=== PATIENT | male | born 1975 | race Caucasian/White ===

== ENCOUNTER 2022-03-11 14:03 | Outpatient (REF) | payer MEDICAID, SELFPAY ==
--- NOTE | ~2022-03-11 | XR_ITS ---
EXAMINATION: XR ANKLE, RIGHT XR FOOT, RIGHT CLINICAL INFORMATION: Right ankle and foot pain. COMPARISON: None TECHNIQUE: 3 views right ankle, 3 views right foot. FINDINGS: No significant soft tissue swelling is seen. The ankle mortise appears stable. There is a small bony density seen at the tip of the medial malleolus which may be an accessory ossicle or the residua of old trauma. No acute fracture is seen. An accessory ossicle is noted beneath the calcaneus. Some spurring is present at the insertion of the Achilles tendon. XR/XR ankle RT min 3V IMPRESSION: No evidence of an acute injury. Other incidental findings as described above.
--- NOTE | ~2022-03-11 | XR_ITS ---
EXAMINATION: XR ANKLE, RIGHT XR FOOT, RIGHT CLINICAL INFORMATION: Right ankle and foot pain. COMPARISON: None TECHNIQUE: 3 views right ankle, 3 views right foot. FINDINGS: No significant soft tissue swelling is seen. The ankle mortise appears stable. There is a small bony density seen at the tip of the medial malleolus which may be an accessory ossicle or the residua of old trauma. No acute fracture is seen. An accessory ossicle is noted beneath the calcaneus. Some spurring is present at the insertion of the Achilles tendon. XR/XR foot RT min 3V IMPRESSION: No evidence of an acute injury. Other incidental findings as described above.
== END 2022-03-11 14:04 | disposition home or self-care (01) ==
LOC: HO.XRAY 14:03
PROVIDERS: Visit Provider Emergency Medicine
DX: M25.571 Pain in right ankle and joints of right foot (principal); R60.9 Edema, unspecified
CPT/HCPCS: 73610; 73630

== ENCOUNTER 2023-03-10 11:07 | Outpatient (REF) | payer MEDICAID, SELFPAY ==
[2023-03-10 13:19] LABS: MANUAL DIFF FLAG NO
[2023-03-10 13:28] LABS: Prothrombin Time 11.7 SEC (11.1-13.3)
[2023-03-10 13:31] LABS: Basophils Absolute Auto 0.1 X10*3/uL (0.0-0.2); Basophils Percent Auto 1.2 % (0-2); Eosinophils Absolute Auto 0.1 X10*3/uL (0.0-0.4); Eosinophils Percent Auto 0.5 % (0-4); Hematocrit 43.3 % (42.0-52.0); Hemoglobin 14.5 g/dl (14.0-18.0); Imm Gran Abs Auto 0.04 X10*3/uL (0.00-0.03); Imm Gran Pct Auto 0.4 % (0.0-0.4); Lymphocytes Percent Auto 19.8 % (20-40); Mean Corpuscular HGB Conc 33.5 g/dl (31.0-36.0); Mean Corpuscular Volume 101.6 fL (80.0-98.0); Mean Platelet Volume 10.1 fL (9.4-12.4); Monocytes Absolute Auto 1.1 X10*3/uL (0.1-1.2); Monocytes Percent Auto 10.5 % (2-11); Neutrophils Absolute Auto 6.7 x10*3/uL (2.0-8.3); Neutrophils Percent Auto 67.6 % (45-73); Platelet Count 334 X10*3/uL (160-400); Red Blood Count 4.26 X10*6/uL (4.60-5.80); Red Cell Distribution Width 11.2 % (11.0-16.0)
[2023-03-10 13:55] LABS: Alanine Aminotransferase 52 U/L (0-40); Alkaline Phosphatase 118 U/L (39-117); Anion Gap 12 (12-20); Aspartate Amino Transferase 74 U/L (5-37); Bilirubin Total 0.3 mg/dL (0.0-1.0); Blood Urea Nitrogen 14 mg/dL (9-16); Calcium 9.5 mg/dL (8.4-10.2); Carbon Dioxide 30 mmol/L (22-29); Chloride 101 mmol/L (96-108); Estimated Glomerular Filt Rate > 60; Glucose Random 80 mg/dL (60-115); Potassium 4.5 mmol/L (3.3-5.1); Sodium 138 mmol/L (135-145); Total Protein 8.3 g/dL (6.5-8.0)
[2023-03-12 11:13] LABS: Absolute CD3 Count 1578 cells/uL (840-3060); Absolute CD4 Count 1038 cells/uL (490-1740); Absolute CD8 Count 544 cells/uL (180-1170); Absolute Lymphocytes 1905 cells/uL (850-3900); CD4 CD8 Ratio 1.91 (0.86-5.00); Percent CD3 Cells 83 % (57-85); Percent CD4 Cells 54 % (30-61); Percent CD8 Cells 29 % (12-42)
[2023-03-13 13:09] LABS: Thyroid Stimulating Hormone 2.31 uIU/mL (0.32-4.0)
[2023-03-13 15:24] LABS: HIV RNA PCR Qn Copies NOT DETECTED copies/mL (NOT DETECTED); HIV RNA PCR Qn Log Copies NOT DETECTED (NOT DETECTED)
[2023-03-16 08:39] LABS: Hepatitis C Genotype 1a
[2023-03-16 15:43] LABS: FIB-ALT 45 U/L (9-46); FIB-Alpha-2-Macroglobulin 262 mg/dL (106-279); FIB-Apolipoprotein A1 149 mg/dL (94-176); FIB-GGT 255 U/L (3-95); FIB-Haptoglobin 51 mg/dL (43-212); FIB-Total Bilirubin 0.3 mg/dL (0.2-1.2); Liver Fibrosis Score 0.56; Liver Fibrosis Stage F2; Nec Inflam Act Grade A1; Nec Inflam Act Score 0.34
== END 2023-03-10 11:08 | disposition home or self-care (01) ==
LOC: HO.HHCL 11:07
PROVIDERS: Visit Provider Student in an Organized Health Care Education/Training Program
DX: B20 Human immunodeficiency virus [HIV] disease (principal)
CPT/HCPCS: 36415; 80053; 81596; 84443; 85025; 85610; 86359; 86360; 87536; 87902

== ENCOUNTER 2023-05-09 08:42 | Outpatient (REF) | payer MEDICAID, SELFPAY ==
[2023-05-09 12:06] LABS: Estimated Average Glucose 103 mg/dL; Hemoglobin A1C 124.9387 umol/L; Hemoglobin A1c % 5.2 % (<6.0)
[2023-05-09 12:40] LABS: Folate 14.5 ng/mL (> or = 4.0); Vitamin B12 698 pg/mL (200-900)
[2023-05-09 12:44] LABS: Cholesterol 144 mg/dL (<200); HDL Cholesterol 52 mg/dL (>40); LDL Cholesterol Calculated 75 mg/dL (<100); Triglycerides 89 mg/dL (<150)
[2023-05-09 13:01] LABS: Vitamin D 25-OH Total 20.4 ng/mL (>30)
[2023-05-10 03:45] LABS: Syphilis Screen Nonreactive (Nonreactive)
[2023-05-10 03:59] LABS: Hepatitis A Antibody IgG REACTIVE (Nonreactive); ~Hepatitis A Antibody IgG 6.04 S/CO (0.00-0.99)
[2023-05-10 04:05] LABS: HBS Num1 0.59 mIU/mL (0-7.99); HBc Num1 6.88 S/CO (0.00-0.79); Hepatitis B Surface Antigen Negative (Negative); ~Hepatitis B Surface Antibody NONREACTIVE (Nonreactive)
[2023-05-10 05:12] LABS: HBc Num2 6.76 S/CO; HBc Num3 6.54 S/CO; Hepatitis B Core Antibody Reactive (Nonreactive)
[2023-05-11 12:54] LABS: Alpha Fetoprotein 2.7 ng/mL (<6.1)
[2023-05-11 18:04] LABS: HCV Log PCR 6.77 Log IU/mL (NOT DETECTED); HepC Viral Load 5920000 IU/mL (NOT DETECTED)
[2023-05-12 01:28] LABS: Hepatitis B Core Antibody IgM NON-REACTIVE (NON-REACTIVE)
[2023-05-12 07:52] LABS: TS Negative Control Passed; TS Panel A 2; TS Panel B 4; TS Positive Control Passed; TSpotTB Negative (Negative)
[2023-05-12 21:23] LABS: Mumps Virus IgG Antibody <9.00 AU/mL
== END 2023-05-09 08:43 | disposition home or self-care (01) ==
LOC: HO.HHCL 08:42
PROVIDERS: Visit Provider Student in an Organized Health Care Education/Training Program
DX: Z00.00 Encounter for general adult medical examination without abnormal findings (principal); B20 Human immunodeficiency virus [HIV] disease; B18.2 Chronic viral hepatitis C
CPT/HCPCS: 36415; 80061; 82105; 82306; 82607; 82746; 83036; 86481; 86704; 86705; 86706; 86708; 86735; 86762; 86765; 86780; 87340; 87522

== ENCOUNTER 2024-05-29 15:30 | Outpatient (REF) | payer MEDICAID, SELFPAY ==
[2024-05-29 16:57] LABS: Rheumatoid Factor 23.6 IU/mL (<15.0)
[2024-05-29 17:05] LABS: Alanine Aminotransferase 160 U/L (0-40); Albumin Level 3.9 g/dL (3.5-5.0); Alkaline Phosphatase 112 U/L (39-117); Anion Gap 8 (12-20); Aspartate Amino Transferase 108 U/L (5-37); Bilirubin Total 0.4 mg/dL (0.0-1.0); Blood Urea Nitrogen 15 mg/dL (9-16); C Reactive Protein 0.34 mg/dL (< or = 0.50); Calcium 9.1 mg/dL (8.4-10.2); Carbon Dioxide 27 mmol/L (22-29); Chloride 106 mmol/L (96-108); Estimated Glomerular Filt Rate > 60; Glucose Random 82 mg/dL (60-115); Potassium 3.9 mmol/L (3.3-5.1); Sodium 137 mmol/L (135-145); Total Protein 8.4 g/dL (6.5-8.0)
--- OUTSIDE RECORDS SUMMARY | 2024-05-29 17:26 | XMS_ITS | Clinical Summary ---
Author Organization [employer] [facility] ity Address [address] [place] [address] Care Team Providers Care Racing Secretary Name Role Phone Unavailable Primary Care Provider Unavailabl e Social History Tobacco Use Types Packs/Day Years Used Date Smoking Tobacco: Never Assessed Sex and Gender Information Value Date Recorded Sex Assigned at Not on file Gender Identity Not on file Sexual Orientation Not on file Plan of Treatment Health Maintenance Due Date Last Done Comments DTaP,Tdap,and Td Vaccines (1 - Tdap) 08/05/1995 Hepatitis B Vaccines (1 of 3 - 19+ 3-dose series) 08/05/1995 Cholesterol Screening (Lipid Panel) 12/25/2023 Colorectal Cancer Screening: Colonoscopy 12/25/2023 Depression Screening 12/25/2023 HIV Screening 12/25/2023 Hepatitis C Screening 12/25/2023 Social Influencers of Health Screening 12/25/2023 COVID-19 Vaccine (2023-2 5 season) 2023 Influenza Vaccine (#1) 2023 HIB Vaccines Aged Out No longer eligi ble based on patient's age to complete this topic HPV Vaccines Aged Out No longer eligi ble based on patient's age to complete this topic Hepatitis A Vaccines Aged Out No long er eligible based on patient's age to complete this topic IPV Vaccines Aged Out No longer eligi ble based on patient's age to complete this topic MMR Vaccines Aged Out No longer eligi ble based on patient's age to complete this topic Meningococcal ACWY Vaccine Aged Out N o longer eligible based on patient's age to complete this topic Pneumococcal Vaccine: Pediat rics (0 to 5 Years) and At-Risk Patients (6 to 64 Years) Aged Out No longer eligible b ased on patient's age to complete this topic RSV Immunization Patients Un keely 20 months Aged Out No longer eligible b ased on patient's age to complete this topic Varicella Vaccines Aged Out No longer eligible based on patient's age to complete this topic
[2024-05-29 18:40] LABS: Erythrocyte Sedimentation Rate 16 MM/HR (0-15)
[2024-05-30 05:29] LABS: ~HepC Num1 16.64 S/CO (0.00-0.79); ~Hepatitis C Antibody Reactive (Nonreactive)
[2024-05-31 13:49] LABS: HIV RNA PCR Qn Copies 25 copies/mL (NOT DETECTED)
[2024-06-01 13:39] LABS: Absolute CD3 Count 3255 cells/uL (840-3060); Absolute CD4 Count 2145 cells/uL (490-1740); Absolute CD8 Count 1091 cells/uL (180-1170); Absolute Lymphocytes 4803 cells/uL (850-3900); CD4 CD8 Ratio 1.97 (0.86-5.00); Percent CD3 Cells 68 % (57-85); Percent CD4 Cells 45 % (30-61); Percent CD8 Cells 23 % (12-42)
[2024-06-01 15:24] LABS: HCV Log PCR 5.25 Log IU/mL (NOT DETECTED); HepC Viral Load 179000 IU/mL (NOT DETECTED)
[2024-06-03 17:08] LABS: Cyclic Citrullinated Peptide <16 UNITS
[2024-06-05 07:15] LABS: Anti Nuclear Antibody Screen NEGATIVE (NEGATIVE)
== END 2024-05-29 15:31 | disposition home or self-care (01) ==
LOC: HO.HHCL 15:30
PROVIDERS: Student in an Organized Health Care Education/Training Program; Visit Provider Nurse Practitioner Family
DX: Z00.00 Encounter for general adult medical examination without abnormal findings (principal); Z21 Asymptomatic human immunodeficiency virus [HIV] infection status; M25.541 Pain in joints of right hand; M25.542 Pain in joints of left hand; B18.2 Chronic viral hepatitis C
CPT/HCPCS: 36415; 80053; 85652; 86038; 86140; 86200; 86359; 86360; 86431; 86803; 87522; 87536

== ENCOUNTER 2024-06-04 08:44 | Outpatient (REF) | payer MEDICAID, SELFPAY ==
[2024-06-04 11:53] LABS: Cholesterol 125 mg/dL (<200); HDL Cholesterol 41 mg/dL (>40); LDL Cholesterol Calculated 69 mg/dL (<100); Triglycerides 75 mg/dL (<150)
[2024-06-04 12:59] LABS: CT PCR NOT DETECTED (Not Detect.); NG PCR NOT DETECTED (Not Detect.)
== END 2024-06-04 08:45 | disposition home or self-care (01) ==
LOC: HO.HHCL 08:44
PROVIDERS: Visit Provider Nurse Practitioner Family
DX: Z00.00 Encounter for general adult medical examination without abnormal findings (principal)
CPT/HCPCS: 80061; 87491; 87591

== ENCOUNTER 2024-06-04 11:42 | Outpatient (REF) | payer MEDICAID, SELFPAY ==
--- OUTSIDE RECORDS SUMMARY | 2024-06-04 12:39 | XMS_ITS | Clinical Summary ---
Author Organization [employer] [facility] ity Address [address] [place] [address] Care Team Providers Care Flight Test Data Acquisition Technician Name Role Phone Unavailable Primary Care Provider [...]
[2024-06-04 13:13] LABS: MANUAL DIFF FLAG NO
[2024-06-04 13:31] LABS: Basophils Absolute Auto 0.1 X10*3/uL (0.0-0.2); Basophils Percent Auto 0.9 % (0-2); Eosinophils Absolute Auto 0.2 X10*3/uL (0.0-0.4); Eosinophils Percent Auto 2.5 % (0-4); Hematocrit 40.7 % (42.0-52.0); Hemoglobin 14.1 g/dl (14.0-18.0); Imm Gran Abs Auto 0.01 X10*3/uL (0.00-0.03); Imm Gran Pct Auto 0.1 % (0.0-0.4); Lymphocytes Absolute Auto 3.8 X10*3/uL (1.2-4.9); Mean Corpuscular HGB Conc 34.6 g/dl (31.0-36.0); Mean Corpuscular Volume 95.3 fL (80.0-98.0); Mean Platelet Volume 10.9 fL (9.4-12.4); Monocytes Absolute Auto 0.8 X10*3/uL (0.1-1.2); Monocytes Percent Auto 10.3 % (2-11); Neutrophils Percent Auto 38.2 % (45-73); Platelet Count 231 X10*3/uL (160-400); Red Blood Count 4.27 X10*6/uL (4.60-5.80); Red Cell Distribution Width 11.8 % (11.0-16.0); White Blood Count 7.9 X10*3/uL (4.8-10.8)
[2024-06-04 13:37] LABS: Prothrombin Time 11.4 SEC (10.9-12.4)
[2024-06-04 13:56] LABS: Alanine Aminotransferase 190 U/L (0-40); Albumin Level 3.9 g/dL (3.5-5.0); Alkaline Phosphatase 94 U/L (39-117); Anion Gap 14 (12-20); Aspartate Amino Transferase 126 U/L (5-37); Bilirubin Total 0.4 mg/dL (0.0-1.0); Blood Urea Nitrogen 13 mg/dL (9-16); Calcium 9.7 mg/dL (8.4-10.2); Carbon Dioxide 29 mmol/L (22-29); Chloride 104 mmol/L (96-108); Estimated Glomerular Filt Rate > 60; Glucose Random 78 mg/dL (60-115); Potassium 4.1 mmol/L (3.3-5.1); Sodium 143 mmol/L (135-145); Total Protein 8.3 g/dL (6.5-8.0)
[2024-06-10 12:53] LABS: Hepatitis C Genotype 1a
[2024-06-12 16:53] LABS: FIB-ALT 144 U/L (9-46); FIB-Alpha-2-Macroglobulin 359 mg/dL (106-279); FIB-Apolipoprotein A1 142 mg/dL (94-176); FIB-GGT 86 U/L (3-95); FIB-Haptoglobin 57 mg/dL (43-212); FIB-Total Bilirubin 0.4 mg/dL (0.2-1.2); Liver Fibrosis Score 0.66; Liver Fibrosis Stage F3; Nec Inflam Act Grade A3; Nec Inflam Act Score 0.81; Reference ID 5331229
== END 2024-06-04 11:43 | disposition home or self-care (01) ==
LOC: HO.HHCL 11:42
PROVIDERS: Visit Provider Student in an Organized Health Care Education/Training Program
DX: B18.2 Chronic viral hepatitis C (principal)
CPT/HCPCS: 36415; 80053; 81596; 85025; 85610; 87902

== ENCOUNTER 2024-07-19 14:49 | Outpatient (REF) | payer MEDICAID, SELFPAY ==
[2024-07-22 03:45] LABS: Syphilis Screen Nonreactive (Nonreactive)
[2024-07-22 14:37] LABS: TS Negative Control Passed; TS Panel A 0; TS Panel B 0; TS Positive Control Passed; TSpotTB Negative (Negative)
== END 2024-07-19 14:50 | disposition home or self-care (01) ==
LOC: HO.HHCL 14:49
PROVIDERS: Emergency Medicine; Visit Provider Internal Medicine
DX: Z00.00 Encounter for general adult medical examination without abnormal findings (principal); Z21 Asymptomatic human immunodeficiency virus [HIV] infection status
CPT/HCPCS: 36415; 86481; 86780

== ENCOUNTER 2024-07-25 09:27 | Outpatient (REF) | payer MEDICAID, SELFPAY ==
--- NOTE | ~2024-07-25 | US_ITS ---
EXAMINATION: US ABDOMEN COMPLETE WITH LIVER ELASTOGRAPHY HISTORY: hep c TECHNIQUE: Real-time grayscale ultrasound imaging of the abdomen was performed and images were reviewed. COMPARISON: There are no prior studies for comparison. FINDINGS: Liver: The right lobe of the liver measures 15.5 cm in size. The left lobe of the liver measures 11.7 cm in size. The liver demonstrates normal homogeneous echotexture. No focal mass or intrahepatic biliary ductal dilatation is identified. There is normal hepatopedal flow in the portal vein. Ultrasound elastography of the liver was performed with 10 separate measurements of the liver parenchyma with the patient in the supine position. Measurements were obtained approximately 2 cm below Doe's capsule and perpendicular to the capsule. Images are of satisfactory quality. The median shear wave velocity is 2.03 m/s. The interquartile range/median (IQR/median) is 0.09. Gallbladder and biliary tree: The gallbladder is unremarkable, without evidence of calculi, wall thickening, or pericholecystic fluid. There is no sonographic Espinoza sign. The common bile duct is normal in caliber measuring 6 mm. Kidneys: The right kidney measures 12.0 cm in length. The left kidney measures 12.6 cm in length. The kidneys are unremarkable, without evidence of masses, hydronephrosis, or calculi. Pancreas: The pancreatic head, neck, and body are unremarkable. The pancreatic tail is obscured by bowel gas. Spleen: The spleen is normal in size and contour, measuring 10.4 cm in length. Abdominal aorta and inferior vena cava: The visualized portions of the abdominal aorta and inferior vena cava are normal in caliber. There is no free fluid in the abdomen. US/US abdomen comp w elastography IMPRESSION: Unremarkable ultrasound appearance of the liver. The median shear wave velocity in the liver is 2.03 m/s, corresponding to a median liver stiffness of 12.55 kPa. The IQR/median value is 0.09. This is indicative of a quality data set. Findings are indicative of a high elastography value suggestive of compensated advanced chronic liver disease. REFERENCE: Society of Radiologists in Ultrasound Liver Stiffness Thresholds (2019): LIVER STIFFNESS THRESHOLDS: *Shear wave velocity less than 1.3 m/s (Liver Stiffness equal or less than 5 kPa): High probability of being normal. *Shear wave velocity less than 1.7 m/s (Liver Stiffness less than 9 kPa): In the absence of other known clinical signs, rules out compensated advanced chronic liver disease. *Shear wave velocity between 1.7-2.1 m/s (Liver Stiffness 9-13 kPa): Suggestive of compensated advanced chronic liver disease but need further test for confirmation. *Shear wave velocity between 2.1-2.4 m/s (Liver Stiffness 13-17 kPa): Rules in compensated advanced chronic liver disease. *Shear wave velocity greater than 2.4 m/s (Liver Stiffness over 17 kPa): Suggestive of clinically significant portal hypertension. QUALITY OF DATA SET: *IQR/Median value equal or less than 0.15 implies a quality data set. *IQR/Median value over 0.15 implies a poor quality data set. SIGNIFICANT CHANGE FROM PRIOR EXAM: Significant change if liver stiffness measurement is 10% or greater from prior exam. OTHER CONSIDERATIONS: The stage of liver fibrosis may be overestimated in the setting of acute hepatitis, liver inflammation, elevated liver function tests, hepatic vascular congestion, obstructive cholestasis, non-fasting state, and infiltrative diseases such as amyloidosis and lymphoma. In some patients with NAFLD, the liver stiffness thresholds for compensated advanced chronic liver disease may be lower. In causes other than viral hepatitis and NAFLD, liver stiffness thresholds are not well established. Electronically signed by: Naveen Godoy MD 07/25/2024 10:43 AM EDT
--- OUTSIDE RECORDS SUMMARY | 2024-07-25 11:22 | XMS_ITS | Clinical Summary ---
Author Organization [employer] [facility] ity Address [address] [place] [address] Care Team Providers Care Liquefier Name Role Phone Unavailable Primary Care Provider Unavailabl e Social History Tobacco Use Types Packs/Day Years Used Date Smoking Tobacco: Never Assessed Sex and Gender Information Value Date Recorded Sex Assigned at Not on file Legal Sex Male 4:50 AM EST Gender Identity Not on file Sexual Orientation [...] patient's age to complete this topic Meningococcal B Vacine Aged Out No lo nger eligible based on patient's age to complete [...]
== END 2024-07-25 09:28 | disposition home or self-care (01) ==
LOC: HO.US 09:27
PROVIDERS: PCP Student in an Organized Health Care Education/Training Program; Visit Provider Internal Medicine
DX: B18.2 Chronic viral hepatitis C (principal)
CPT/HCPCS: 76700; 76981

== ENCOUNTER → 2024-07-25 09:32 | Outpatient (BNV) | payer MEDICAID, SELFPAY | PROVIDERS: PCP Student in an Organized Health Care Education/Training Program; Visit Provider Radiology Diagnostic Radiology | DX: B18.2 Chronic viral hepatitis C (principal) | CPT/HCPCS: 76700; 76981 ==

== ENCOUNTER 2024-08-12 16:36 | Outpatient (REF) | payer MEDICAID, SELFPAY ==
--- OUTSIDE RECORDS SUMMARY | 2024-08-12 18:30 | XMS_ITS | Clinical Summary ---
Author Organization [employer] [facility] ity Address [address] [place] [address] Care Team Providers Care Laundry Technician Name Role Phone Unavailable Primary Care [...] Vaccine (2023-2 5 season) 2023 Influenza Vaccine (Season Ended) 2024 HIB Vaccines Aged Out No longer eligi [...] age to complete this topic Meningococcal B Vaccine Aged Out No l onger eligible based on patient's age to complete [...]
== END 2024-08-12 16:37 | disposition home or self-care (01) ==
LOC: HO.LNP 16:36
PROVIDERS: Visit Provider Student in an Organized Health Care Education/Training Program
DX: Z21 Asymptomatic human immunodeficiency virus [HIV] infection status (principal)
CPT/HCPCS: 88112

== ENCOUNTER 2024-08-13 10:44 | Outpatient (REF) | payer MEDICAID, SELFPAY ==
--- NOTE | ~2024-08-13 | XR_ITS ---
EXAMINATION: XR CERVICAL SPINE 2-3 VIEWS HISTORY: PAIN COMPARISON: There are no prior studies for comparison. FINDINGS: AP, lateral, and open-mouth odontoid views of the cervical spine are submitted. Osseous mineralization is normal. Seven cervical vertebral bodies are identified maintaining normal height and alignment without evidence of fracture or subluxation. There is mild degenerative disc disease with disc space narrowing and osteophyte formation, most prominent at C5-6. The odontoid and lateral masses of C1 are intact. There is no prevertebral soft tissue swelling. XR/XR cervical spine 3V IMPRESSION: Mild degenerative changes as described. Electronically signed by: Naveen Godoy MD 08/13/2024 01:38 PM EDT
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
--- OUTSIDE RECORDS SUMMARY | 2024-08-13 13:01 | XMS_ITS | Clinical Summary ---
Author Organization [employer] [facility] ity Address [address] [place] [address] Care Team Providers Care Flight Attendant/Inflight Manager Name Role Phone Unavailable Primary Care Provider [...]
== END 2024-08-13 10:45 | disposition home or self-care (01) ==
LOC: HO.HHCX 10:44
PROVIDERS: Visit Provider Student in an Organized Health Care Education/Training Program
DX: M25.511 Pain in right shoulder (principal); G89.29 Other chronic pain; M54.2 Cervicalgia
CPT/HCPCS: 72040; 73030

== ENCOUNTER → 2024-08-13 10:45 | Outpatient (BNV) | payer MEDICAID, SELFPAY | PROVIDERS: Visit Provider Radiology Diagnostic Radiology | DX: M54.2 Cervicalgia (principal); M25.511 Pain in right shoulder; Z18.10 Retained metal fragments, unspecified | CPT/HCPCS: 72040; 73030 ==

== ENCOUNTER 2024-10-15 14:34 | Outpatient (AMB) | payer MEDICAID, SELFPAY ==
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
[2024-10-15 14:52] VITALS: BMI 30.3
--- OUTSIDE RECORDS SUMMARY | 2024-10-15 16:52 | XMS_ITS | Clinical Summary ---
Author Organization [employer] [facility] ity Address [address] [place] [address] Care Team Providers Care Pipe Line Walker Name Role Phone Unavailable Primary Care Provider [...]
== END 2024-10-15 15:13 | disposition home or self-care (01) ==
LOC: HO.HOS 14:34
PROVIDERS: Visit Provider Orthopaedic Surgery
DX: R29.898 Other symptoms and signs involving the musculoskeletal system (principal)
CPT/HCPCS: 99203

== ENCOUNTER → 2024-10-15 14:34 | Outpatient (BNVA) | payer MEDICAID, SELFPAY | PROVIDERS: Visit Provider Orthopaedic Surgery | DX: M25.511 Pain in right shoulder (principal); G89.29 Other chronic pain; R29.898 Other symptoms and signs involving the musculoskeletal system | CPT/HCPCS: 99202 ==